=== PATIENT | male | born 1955 | race Caucasian/White ===

== ENCOUNTER 2016-11-20 22:24 | Inpatient (IN) | payer BC ==
[~2016-11-20] VITALS: Ht 167.6 cm; Wt 83.9 kg
[~2016-11-20 22:24] MED LIST: ATOR10TA PO; LISI-607 PO
[2016-11-20] MEDS ORDERED: ASPIRIN 325 MG TABLET ONE (22:51)
[2016-11-20] MEDS ORDERED: NITROGLYCERIN 0.4 MG/TAB BOTTLE ONE (22:51)
[2016-11-20 22:56] LABS: BASOPHILS # (AUTO) 0.3 /CMM (0.0-0.2); BASOPHILS % (AUTO) 1.4 % (0.0-2.0); DIFF TOTAL % 100 %; EOSINOPHILS # (AUTO) 0.2 /CMM (0.0-0.7); EOSINOPHILS % (AUTO) 0.9 % (0.0-6.0); HEMATOCRIT 53 % (39-51); LYMPHOCYTES # (AUTO) 2.7 /CMM (0.8-4.8); LYMPHOCYTES % (AUTO) 14.6 % (20.0-44.0); MEAN CORPUSCULAR HEMOGLOBIN 34 PG (26.0-33.0); MEAN CORPUSCULAR HGB CONC 34 g/dl (31.0-36.0); MEAN CORPUSCULAR VOLUME 99 fL (80-96); MONOCYTES # (AUTO) 1.4 /CMM (0.1-1.30); MONOCYTES % (AUTO) 7.8 % (2.0-12.0); NEUTROPHILS # (AUTO) 13.8 /CMM (1.8-8.9); NEUTROPHILS % (AUTO) 75.3 % (43.0-81.0); PLATELET COUNT (AUTO) 327 /CMM (150-450); RED BLOOD CELL COUNT(AUTO) 5.37 MIL/uL (4.5-6.0); WHITE BLOOD COUNT (AUTO) 18.3 K/uL (4.3-11.0)
[2016-11-20] MEDS ORDERED: ASPIRIN 325 MG TABLET PO ONE (23:00)
[2016-11-20] MEDS ORDERED: NITROGLYCERIN 0.4 MG/TAB BOTTLE SL ONE (23:00)
[2016-11-20] MEDS ORDERED: IV SET PRIMARY 1 EA INFUS.SET MC ONE (23:06)
[2016-11-20] MEDS ORDERED: IV NS 0.9% 1,000 ML ONE (23:07)
[2016-11-20 23:13] LABS: ANION GAP 10 (5-14); CALCIUM, SERUM 9.7 mg/dL (8.5-10.1); CARBON DIOXIDE 33 mmol/L (21-32); CHLORIDE 99 mmol/L (98-107); GFR 34 mL/min (>60); GLUCOSE 110 mg/dL (74-106); SODIUM SERUM 138 mmol/L (136-145); UREA NITROGEN, BLOOD 13 mg/dL (7-18)
[2016-11-20 23:14] LABS: INR 0.99 (0.87-1.13); PROTHROMBIN TIME 10.7 SECS (9.5-12.7)
[2016-11-20 23:17] LABS: TROPONIN I < 0.017 ng/mL (0.00-0.056)
[2016-11-20 23:25] LABS: LYMPHOCYTES % (MANUAL) 15 % (16-48)
[2016-11-20 23:27] LABS: PLATELET ESTIMATE ADEQUATE
[2016-11-20] MEDS ORDERED: IV NS 0.9% 1,000 ML BAG IV ONE (23:30)
[2016-11-21 00:19] LABS: KETONES,URINE NEGATIVE (NEGATIVE); LEUKOCYTE ESTERASE ,URINE NEGATIVE (NEGATIVE); PH,URINE 6.5 (5.0-8.0)
[2016-11-21 00:20] LABS: ADD UA MICROSCOPIC YES
[2016-11-21 00:27] LABS: ADD URINE CULTURE NO; RBC,URINE 0-2 /HPF (0-2); WBC,URINE 0-2 /HPF (0-3)
[2016-11-21] MEDS ORDERED: ACETAMINOPHEN 325 MG TABLET PO PRN (01:00)
[2016-11-21] MEDS ORDERED: ZOLPIDEM TARTRATE 5 MG TABLET PO PRN (01:00)
[2016-11-21] MEDS ORDERED: NITROGLYCERIN 0.4 MG/TAB BOTTLE SL PRN (01:00)
[2016-11-21] MEDS ORDERED: MORPHINE SULFATE INJ 2 MG/ML DISP.SYRIN IV PRN (01:00)
[2016-11-21] MEDS ORDERED: ONDANSETRON HCL/PF 4 MG/2 ML VIAL IVP PRN (01:00)
[2016-11-21] MEDS ORDERED: Z GUARD REMEDY 2 OZ OINT TP PRN (01:00)
[2016-11-21] MEDS ORDERED: MAGNESIUM HYDROXIDE 30 ML UDC PO PRN (01:00)
[2016-11-21] MEDS ORDERED: MAG HYDROX/AL HYDROX/SIMETH 30 ML UDC PO PRN (01:00)
[2016-11-21 01:30] VITALS: BP_SYST 135; BP_SYST 145; BP_DIAS 83
[2016-11-21] MEDS ORDERED: IV NS 0.9% 1,000 ML ONE (02:34)
[2016-11-21] MEDS ORDERED: IV SET PRIMARY PUMP SET 1 EA INFUS.SET MC ONE (02:35)
[2016-11-21] MEDS ORDERED: ASPI-991 PO (03:18)
[2016-11-21 03:19] VITALS: BP 145/83
[2016-11-21 04:00] VITALS: BP_SYST 130; BP_SYST 149; BP_DIAS 83; BP_DIAS 92
[2016-11-21] MEDS ORDERED: ACETAMINOPHEN 325 MG TABLET ONE (04:07)
[2016-11-21] MEDS: IV NS 0.9% 1,000 ML IV PRN ×2 (04:09→16:13)
[2016-11-21 05:26] LABS: BASOPHILS % (AUTO) 0.2 % (0.0-2.0); DIFF TOTAL % 100 %; EOSINOPHILS % (AUTO) 0.2 % (0.0-6.0); HEMATOCRIT 48 % (39-51); HEMOGLOBIN 16.2 g/dL (13.5-17.5); LYMPHOCYTES # (AUTO) 1.9 /CMM (0.8-4.8); LYMPHOCYTES % (AUTO) 11.6 % (20.0-44.0); MEAN CORPUSCULAR HEMOGLOBIN 34 PG (26.0-33.0); MEAN CORPUSCULAR HGB CONC 34 g/dl (31.0-36.0); MEAN CORPUSCULAR VOLUME 99 fL (80-96); MONOCYTES # (AUTO) 1.5 /CMM (0.1-1.30); MONOCYTES % (AUTO) 8.8 % (2.0-12.0); NEUTROPHILS # (AUTO) 13.3 /CMM (1.8-8.9); NEUTROPHILS % (AUTO) 79.2 % (43.0-81.0); PLATELET COUNT (AUTO) 284 /CMM (150-450); WHITE BLOOD COUNT (AUTO) 16.7 K/uL (4.3-11.0)
[2016-11-21 05:45] LABS: CALCIUM, SERUM 9.4 mg/dL (8.5-10.1); CREATININE 1.7 mg/dL (0.6-1.3); PHOSPHORUS 3.8 mg/dL (2.5-4.9); POTASSIUM 4.6 mmol/L (3.5-5.1)
[2016-11-21 08:00] VITALS: BP_SYST 144; BP_DIAS 84; BP_DIAS 85
[2016-11-21] MEDS: ATORVASTATIN 10 MG TABLET PO SCH (08:41)
[2016-11-21] MEDS: PANTOPRAZOLE 40 MG TABLET.DR PO SCH (08:42)
[2016-11-21] MEDS: ASPIRIN 81 MG TAB.CHEW PO SCH (08:42)
[2016-11-21] MEDS: LISINOPRIL (5MG) 5 MG TABLET PO SCH (08:42)
[2016-11-21] MEDS: HYDROCODONE/APAP 5/325MG 1 EACH TABLET PO PRN ×2 (12:49→21:57)
[2016-11-21 16:00] VITALS: BP 125/86
[2016-11-21 20:00] VITALS: BP 138/89
[2016-11-22] VITALS: BP 134/79
[2016-11-22] MEDS: IV NS 0.9% 1,000 ML IV PRN (03:58)
[2016-11-22 04:00] VITALS: BP 126/88
[2016-11-22] MEDS: PANTOPRAZOLE 40 MG TABLET.DR PO SCH (07:30)
[2016-11-22 07:50] LABS: CALCIUM, SERUM 8.2 mg/dL (8.5-10.1); CREATININE 1.3 mg/dL (0.6-1.3); PHOSPHORUS 2.7 mg/dL (2.5-4.9); POTASSIUM 4.4 mmol/L (3.5-5.1)
[2016-11-22 07:52] LABS: BASOPHILS % (AUTO) 0.4 % (0.0-2.0); DIFF TOTAL % 100 %; EOSINOPHILS # (AUTO) 0.4 /CMM (0.0-0.7); EOSINOPHILS % (AUTO) 3.8 % (0.0-6.0); HEMATOCRIT 45 % (39-51); HEMOGLOBIN 15.3 g/dL (13.5-17.5); LYMPHOCYTES # (AUTO) 2.1 /CMM (0.8-4.8); LYMPHOCYTES % (AUTO) 20.2 % (20.0-44.0); MEAN CORPUSCULAR HEMOGLOBIN 34 PG (26.0-33.0); MEAN CORPUSCULAR HGB CONC 34 g/dl (31.0-36.0); MEAN CORPUSCULAR VOLUME 100 fL (80-96); MONOCYTES # (AUTO) 1.1 /CMM (0.1-1.30); MONOCYTES % (AUTO) 9.9 % (2.0-12.0); NEUTROPHILS % (AUTO) 65.7 % (43.0-81.0); PLATELET COUNT (AUTO) 261 /CMM (150-450); RED BLOOD CELL COUNT(AUTO) 4.53 MIL/uL (4.5-6.0); WHITE BLOOD COUNT (AUTO) 10.6 K/uL (4.3-11.0)
[2016-11-22 08:00] VITALS: BP 128/80
[2016-11-22 09:46] VITALS: BP 128/80
[2016-11-22] MEDS: LISINOPRIL (5MG) 5 MG TABLET PO SCH (09:46)
[2016-11-22] MEDS: ATORVASTATIN 10 MG TABLET PO SCH (09:46)
[2016-11-22] MEDS: ASPIRIN 81 MG TAB.CHEW PO SCH (09:46)
[2016-11-22] MEDS ORDERED: PANT40TA2 PO (10:05)
== END 2016-11-22 13:15 | disposition home or self-care (01) | DRG 391 ==
LOC: ER 22:27 → TELE 23:16 → MED 11-22 09:39
PROVIDERS: ADMIT Family Medicine; ATTEND Family Medicine
DX: K21.9 Gastro-esophageal reflux disease without esophagitis (principal); N17.0 Acute kidney failure with tubular necrosis; D68.59 Other primary thrombophilia; D72.829 Elevated white blood cell count, unspecified; E66.9 Obesity, unspecified; E78.5 Hyperlipidemia, unspecified; I12.9 Hypertensive chronic kidney disease with stage 1 through stage 4 chronic kidney disease, or unspecified chronic kidney disease; N18.2 Chronic kidney disease, stage 2 (mild); Z68.29 Body mass index [BMI] 29.0-29.9, adult
CPT/HCPCS: 36415; 71010-TC; 80048-TC; 80061-TC; 81000-TC; 83735-TC; 83880; 84100-TC; 84484-TC; 85025-TC; 85730-TC; 87081-TC; 93307-TC; A4606; A9502; J7030; Z7610

== ENCOUNTER 2019-08-20 19:50 | Emergency (ER) | payer BC, OTHER ==
[~2019-08-20] VITALS: Ht 167.6 cm; Wt 86.2 kg
[~2019-08-20 19:50] MED LIST changes: +ASPI-1395 PO; +PANT40TA2 PO
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
[2019-08-20] MEDS ORDERED: IBUPROFEN 600 MG TABLET PO ONE ×2 (21:17→21:30)
--- NOTE | 2019-08-20 22:11 | NUR ---
Patient discharged to home in stable condition. Written and verbal after care instructions given. Patient verbalizes understanding of instruction. Pt ambulatory with a limp otherwise on steady gait
[2019-08-20 22:13] VITALS: BP 126/82
== END 2019-08-20 22:13 | disposition home or self-care (01) ==
LOC: ER 20:00
DX: S90.121A Contusion of right lesser toe(s) without damage to nail, initial encounter (principal); I10 Essential (primary) hypertension; Z98.890 Other specified postprocedural states; Z79.82 Long term (current) use of aspirin; W20.8XXA Other cause of strike by thrown, projected or falling object, initial encounter; Y93.89 Activity, other specified; Y92.89 Other specified places as the place of occurrence of the external cause; Y99.8 Other external cause status
CPT/HCPCS: 73660-TC